=== PATIENT | male | born 1960 | race Caucasian/White ===

== ENCOUNTER 2018-12-26 18:06 | Emergency (ER) | payer BC, OTHER ==
[~2018-12-26] VITALS: Ht 182.9 cm; Wt 104.3 kg
--- OUTSIDE RECORDS SUMMARY | 2018-12-26 18:11 | XMS REPORT ---
Author Author Alicia Norman Organization [facility] Address [address] [place], [place] [id number] Care Team Providers Care Automotive General Manager Name Role Phone Alicia Norman PCP Alicia Norman PreferredProvider Allergies and Adverse Reactions Name Reaction Notes PENICILLINS Plan of Treatment Planned Activity Comments Planned Date Planned Time Plan/Goal T3 TOTAL 12/20/2018 12:00 AM Stress echo w physician interpretation 12/20/2018 12:00 AM Medications Active Name Start Date Estimated Completion Date SIG Comments promethazine oral lisinopril-hydrochlorothiazide 10-12.5 mg oral tablet take 1 tablet by oral route once daily ketorolac 10 mg oral tablet Take one tab PO q6 hrs PRN for pain Problem List Not available. Vital Signs Date Time BP-Sys(mm[Hg] BP-Denisse(mm[Hg]) HR(bpm) RR(rpm) Temp WT HT HC BMI BSA BMI Percentile O2 Sat(%) 12/20/2018 11:21:00 AM 128 mmHg 88 mmHg 67 bpm 18 rpm 98.6 F 236 lbs 72 in 32.007 kg/m 2.332 m 99 % Social History Name Description Comments Tobacco Current every day smoker denies alcohol use Caffeine Current every day Active but no formal exercise History of Procedures Date Ordered Description Order Status 12/20/2018 12:00 AM COMPLETE CBC W/AUTO DIFF WBC Returned 12/20/2018 12:00 AM COMPREHEN METABOLIC PANEL Returned 12/20/2018 12:00 AM LIPID PANEL Returned 12/20/2018 12:00 AM ASSAY THYROID STIM HORMONE Returned 12/20/2018 12:00 AM ASSAY OF FREE THYROXINE Returned 12/20/2018 12:00 AM ELECTROCARDIOGRAM TRACING Reviewed 12/20/2018 12:00 AM CHEST X-RAY 2VW FRONTAL&LATL Returned Results Summary Date and Description Results 12/20/2018 8:56 PM Falls in last 6 months? No Unsteady or worry about falling? No Fall Risk Assessment Not At Risk During the past month, have you been feeling depressed? No During the past month, have you lost interest in usual activity? No History Of Immunizations Not available. History of Past Illness Name Date of Onset Comments arthritis Migraine Other fatigue Dec 20 2018 11:27AM Hypertension Dec 20 2018 11:27AM Shortness Of Breath Dec 20 2018 11:27AM Chest pain Dec 20 2018 11:27AM Acute non-recurrent pansinusitis Dec 20 2018 11:27AM Headache Dec 20 2018 11:27AM Payers Insurance Name Company Name Plan Name Plan Number Policy Number Policy Group Number Start Date BCBS [facility] [id number] [id number] N/A History of Encounters Visit Date Visit Type Provider 12/20/2018 Office visit Alicia Norman SUPERINTENDENT RENTING MANAGING 05/04/2017 Surgery Rush Foss MD
--- OUTSIDE RECORDS SUMMARY | 2018-12-26 18:11 | XMS REPORT | CCD ---
Author Author RENE IBANEZ Organization Unknown Address [address] [facility] [address] [place] [address] Care Team Providers Care Solar Electric Practitioner Name Role Phone DEENA ORDOÑEZ, CYN Traore Allergies Unknown or Not Available. Active Medications Unknown or Not Available. Problems Unknown or Not Available. Procedures Procedure Code Procedure Type Date Esophagogastroduodenoscopy, flexible, transoral; [place] [address] CPT 05/04/2017 PATHOLOGY ORDER [id number] SNOMED CT 05/04/2017 Results Unknown or Not Available. Function Status Unknown or Not Available. History of Immunizations Unknown or Not Available. Plan of Treatment Unknown or Not Available. Social History Smoking Status Code Start Date End Date Never smoker [id number] Vital Signs Unknown or Not Available. Function Status Unknown or Not Available. Goals Unknown or Not Available. ASSESSMENTS Unknown or Not Available. Health Concerns Section Unknown or Not Available.
--- OUTSIDE RECORDS SUMMARY | 2018-12-26 18:11 | XMS REPORT ---
Author Author Alicia Norman Organization [facility] Address [address] [place], [place] [id number] Care Team Providers Care Cold Water Machine Operator Name Role Phone Alicia Norman PCP Alicia Norman PreferredProvider Allergies and Adverse Reactions Name Reaction Notes PENICILLINS Plan of Treatment Planned Activity Comments Planned Date Planned Time Plan/Goal Stress echo w physician interpretation 12/20/2018 12:00 [...] 12:00 AM COMPLETE CBC W/AUTO DIFF WBC Reviewed 12/20/2018 12:00 AM COMPREHEN METABOLIC PANEL Reviewed 12/20/2018 12:00 AM LIPID PANEL Reviewed 12/20/2018 12:00 AM ASSAY THYROID STIM HORMONE Reviewed 12/20/2018 12:00 AM ASSAY OF FREE THYROXINE Reviewed 12/20/2018 12:00 AM ASSAY TRIIODOTHYRONINE (T3) Returned 12/20/2018 12:00 AM ELECTROCARDIOGRAM TRACING Reviewed 12/20/2018 12:00 AM CHEST X-RAY 2VW FRONTAL&LATL Reviewed Results Summary Date and Description Results 12/20/2018 12:45 PM TSH 1.31 FREE T4 1.11 GLUCOSE 95 SODIUM 140 POTASSIUM 4.0 CHLORIDE 104 CO2 27 BUN 15 CREATININE 1.0 SGOT/AST 16 SGPT/ALT 20 ALK PHOS 83 TOTAL PROTEIN 7.5 ALBUMIN 4.7 TOTAL BILI 1.7 CALCIUM 10.1 AGE 58 GFR NonAA 77 GFR AA 93 eGFR 77 eGFR AA* >60 TRIGLYCERIDES 109 CHOLESTEROL 235 HDL 41 TOT CHOL /HDL 5.7 LDL (CALC) 172 WBC 9.8 RBC 4.90 HGB 15.3 HCT 46.7 MCV 95 MCH 31.2 MCHC 32.8 RDW SD 43 RDW CV 12.2 MPV 10.2 PLT 248 NRBC# 0.00 NRBC% 0.0 %NEUT 74.7 % LYMP 18.1 %MONO 5.5 %EOS 0.7 %BASO 0.7 #NEUT 7.35 #LYMP 1.78 #MONO 0.54 #EOS 0.07 #BASO 0.07 MANUAL DIFF NOT IND 12/20/2018 8:56 PM Falls in last 6 [...] Number Policy Group Number Start Date BCBS [facility] [id number] N/A BCBS [facility] [id number] N/A History of Encounters Visit Date Visit Type Provider 12/20/2018 Office visit Alicia Norman SUPERVISOR FILTRATION 05/04/2017 Surgery Rush Foss MD
--- OUTSIDE RECORDS SUMMARY | 2018-12-26 18:11 | XMS REPORT ---
Author Author Alicia Norman Organization [facility] Address [address] [place], [place] [id number] Care Team Providers Care Street Light Mechanic Name Role Phone Alicia Norman PCP Alicia [...] OF FREE THYROXINE Reviewed 12/20/2018 12:00 AM ELECTROCARDIOGRAM TRACING Reviewed 12/20/2018 [...] Number Policy Group Number [facility] Date [facility] [id number] N/A [facility] [id number] N/A History of Encounters Visit Date Visit Type Provider 12/20/2018 Office visit Alicia Norman PLATE SENSITIZER 05/04/2017 Surgery Rush Foss MD
--- OUTSIDE RECORDS SUMMARY | 2018-12-26 18:11 | XMS REPORT | Continuity of Care Document ---
Author Author [facility] Organization [facility] Address Unknown Phone Unavailable Allergies There is no data. Medications There is no data. Problems There is no data. Procedures There is no data. Results There is no data. Encounters ACCT No. Visit Date/Time Discharge Status Pt. Type Provider Facility Loc./Unit Complaint [id number] 12/20/2018 11:14:50 12/20/2018 23:59:59 [facility] Outpatient Elfego Norman [id number] 05/11/2017 11:43:58 05/11/2017 23:59:59 [facility] Outpatient Rush Foss
[2018-12-26] MEDS ORDERED: ASPIRIN 81 MG CHEW (CHILDREN'S ASA) ONE (18:18)
[2018-12-26] MEDS ORDERED: LISI-556 PO (18:21)
[2018-12-26 18:37] LABS: BASOPHILS # (AUTO) 0.1 10^3/uL (0.0-0.1); BASOPHILS % (AUTO) 1 % (0-10); EOSINOPHILS # (AUTO) 0.2 10^3/uL (0.0-0.3); EOSINOPHILS % (AUTO) 2 % (0-10); HEMATOCRIT 42 % (40-54); HEMOGLOBIN 14.6 G/DL (13.3-17.7); LYMPHOCYTES # (AUTO) 2.6 X 10^3 (1.0-4.0); LYMPHOCYTES % (AUTO) 31 % (12-44); MEAN CORPUSCULAR HEMOGLOBIN 32 PG (25-34); MEAN CORPUSCULAR HGB CONC 35 G/DL (32-36); MEAN CORPUSCULAR VOLUME 92 FL (80-99); MEAN PLATELET VOLUME 10.4 FL (7.4-10.4); MONOCYTES # (AUTO) 0.8 X 10^3 (0.0-1.0); MONOCYTES % (AUTO) 10 % (0-12); NEUTROPHILS # (AUTO) 4.8 X 10^3 (1.8-7.8); NEUTROPHILS % (AUTO) 57 % (42-75); PLATELET COUNT 247 10^3/uL (130-400); RED CELL DISTRIBUTION WIDTH 12.5 % (10.0-14.5); WHITE BLOOD COUNT 8.5 10^3/uL (4.3-11.0)
--- NOTE | 2018-12-26 18:39 | ED Chest Pain ---
General Chief Complaint: Chest Pain Stated Complaint: CP Nursing Triage Note: PT PRESENTS TO ED WITH COMPLAINTS OF MEDIAL CP THAT RADIATES TO BOTH NIPPLES STARTING AT 1530 TODAY. PT DENIES SOA. PT REPORTS THE PAST 2 WEEKS HE HAS HAD SIMILAR EPISODES WITH HYPERTENSION, DIZZINESS, MIJARES, SOA, AND CP. PT REPORTS HE IS SCHEDULED TO SEE DR CUNNINGHAM ON 12/28/18 Nursing Sepsis Screen: No Definite Risk Source: patient, spouse Exam Limitations: no limitations History of Present Illness Date Seen by Provider: Dec 26, 2018 Time Seen by Provider: 18:15 Initial Comments Patient presents to ER by private conveyance with chief complaint of chest pain starting substernal and radiating out towards the left and right breast. Started 1530 today. He's had the same intermittent pressure and pain for the past week or 2. With his doctor and scared his blood pressure was high intermittently out words at 180/110. He was started on lisinopril. This is helped bring his blood pressure down. His rn training Dr. Cunningham. He lives in [place], [place]. 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 He has no personal coronary artery history or significant family history. No history of diabetes, thyroidism. Just blood pressure and cluster all. He does chew can of tobacco every 2-3 days. Denies any recreational drug use and only occasional beer every few months. He says he's had swelling in his feet intermittently worse towards the end of the day for years that is not any worse than usual. He describes the pain as an 8 out of 10 on burning, aching pressure. No significant history of acid reflux. Allergies and Home Medications Allergies Coded Allergies: Penicillins (Verified Allergy, Unknown, 12/26/18) Home Medications Lisinopril 5 Mg Tablet, 5 MG PO DAILY, (Reported) Patient Home Medication List Home Medication List Reviewed: Yes Review of Systems Review of Systems Constitutional: No chills, No fever EENTM: No Blurred Vision, No Double Vision Respiratory: Denies Cough, Denies Shortness of Air Cardiovascular: See HPI, Chest Pain, Edema; Denies Irregular Heart Rate, Denies Lightheadedness, Denies Palpitations Gastrointestinal: Denies Abdomen Distended, Denies Abdominal Pain, Denies Constipated, Denies Diarrhea; Nausea; Denies Vomiting Genitourinary: Denies Burning, Denies Discharge Musculoskeletal: No back pain, No joint pain Skin: No pruritus, No rash Psychiatric/Neurological: Denies Headache, Denies Numbness Past Qtcecti-Dxgpie-Allgzb Hx Patient Social History Alcohol Use: Rarely Uses Recreational Drug Use: No Smoking Status: Never a Smoker Type Used: Smokeless Tobacco Recent Foreign Travel: No Contact w/Someone Who Travel: No Recent Infectious Disease Expo: No Recent Hopitalizations: No Physical Abuse: No Sexual Abuse: No Mistreated: No Fear: No Seasonal Allergies Seasonal Allergies: No Past Medical History Surgeries: No Respiratory: No Cardiac: Yes Hypertension Neurological: No Genitourinary: No Gastrointestinal: No Musculoskeletal: No Endocrine: No HEENT: No Cancer: No Psychosocial: No Integumentary: No Blood Disorders: No Physical Exam Vital Signs Vital Signs - First Documented 12/26/18 18:11 Temp 97.3 Pulse 70 Resp 20 B/P (MAP) 144/78 (100) Pulse Ox 100 O2 Delivery Nasal Cannula O2 Flow Rate 2.0 Capillary Refill : Less Than 3 Seconds Height, Weight, BMI Height: 6'" Weight: 230lbs. oz. 104.026664rc; BMI Method:Stated General Appearance: No Apparent Distress, WD/WN HEENT: PERRL/EOMI, Moist Mucous Membranes Respiratory: Chest Non Tender, Lungs Clear, Normal Breath Sounds, No Accessory Muscle Use, No Respiratory Distress Cardiovascular: Regular Rate, Rhythm, No Edema, Normal Peripheral Pulses Gastrointestinal: Normal Bowel Sounds, Non Tender, Soft Extremity: Normal Capillary Refill, Normal Inspection, Normal Range of Motion, Non Tender, No Calf Tenderness, No Pedal Edema Neurologic/Psychiatric: Alert, Oriented x3, No Motor/Sensory Deficits, Normal Mood/Affect Skin: Normal Color, Warm/Dry Progress/Results/Core Measures Results/Orders Lab Results Laboratory Tests Test 12/26/18 18:16 12/26/18 20:40 Range/Units White Blood Count 8.5 4.3-11.0 10^3/uL Red Blood Count 4.55 4.35-5.85 10^6/uL Hemoglobin 14.6 13.3-17.7 G/DL Hematocrit 42 40-54 % Mean Corpuscular Volume 92 80-99 FL Mean Corpuscular Hemoglobin 32 25-34 PG Mean Corpuscular Hemoglobin Concent 35 32-36 G/DL Red Cell Distribution Width 12.5 10.0-14.5 % Platelet Count 247 130-400 10^3/uL Mean Platelet Volume 10.4 7.4-10.4 FL Neutrophils (%) (Auto) 57 42-75 % Lymphocytes (%) (Auto) 31 12-44 % Monocytes (%) (Auto) 10 0-12 % Eosinophils (%) (Auto) 2 0-10 % Basophils (%) (Auto) 1 0-10 % Neutrophils # (Auto) 4.8 1.8-7.8 X 10^3 Lymphocytes # (Auto) 2.6 1.0-4.0 X 10^3 Monocytes # (Auto) 0.8 0.0-1.0 X 10^3 Eosinophils # (Auto) 0.2 0.0-0.3 10^3/uL Basophils # (Auto) 0.1 0.0-0.1 10^3/uL Prothrombin Time 12.4 12.2-14.7 SEC INR Comment 0.9 0.8-1.4 Activated Partial Thromboplast Time 26 24-35 SEC Sodium Level 141 135-145 MMOL/L Potassium Level 3.7 3.6-5.0 MMOL/L Chloride Level 104 98-107 MMOL/L Carbon Dioxide Level 25 21-32 MMOL/L Anion Gap 12 5-14 MMOL/L Blood Urea Nitrogen 18 7-18 MG/DL Creatinine 1.03 0.60-1.30 MG/DL Estimat Glomerular Filtration Rate > 60 BUN/Creatinine Ratio 17 Glucose Level 90 70-105 MG/DL Calcium Level 9.8 8.5-10.1 MG/DL Corrected Calcium 8.5-10.1 MG/DL Magnesium Level 2.5 H 1.8-2.4 MG/DL Total Bilirubin 1.0 0.1-1.0 MG/DL Aspartate Amino Transf (AST/SGOT) 17 5-34 U/L Alanine Aminotransferase (ALT/SGPT) 19 0-55 U/L Alkaline Phosphatase 76 40-136 U/L Myoglobin 23.8 10.0-92.0 NG/ML Troponin I < 0.028 < 0.028 <0.028 NG/ML B-Type Natriuretic Peptide 15.8 <100.0 PG/ML Total Protein 7.2 6.4-8.2 GM/DL Albumin 4.6 H 3.2-4.5 GM/DL Lipase 24 8-78 U/L My Orders Orders - LETTY BOWERS Aspirin Chewable Tablet (Baby Aspirin Ch (12/26/18 18:18) Cbc With Automated Diff (12/26/18 18:31) Magnesium (12/26/18 18:31) Chest 1 View, Ap/Pa Only (12/26/18 18:31) Ekg Tracing (12/26/18 18:31) Cardiac Profile 1 (12/26/18 18:) Comprehensive Metabolic Panel (12/26/18:) Myoglobin Serum (12/26/18:) Protime With Inr (12/26/18:) Partial Thromboplastin Time (12/26/18 18:) O2 (12/26/18 18:) Monitor-Rhythm Ecg Trace Only (12/26/18:) Lipid Panel (12/27/18 06:00) Aspirin Chewable Tablet (Baby Aspirin Ch (12/26/18 18:45) Saline Lock/Iv-Start (12/26/18 18:31) Lipase (12/26/18 18:31) BNP (12/26/18 18:31) Troponin I (12/26/18 20:06) Ekg Tracing (12/26/18 20:06) Medications Given in ED Current Medications Medications Dose Ordered Sig/Ismael Route Start Time Stop Time Status Last Admin Dose Admin Aspirin 81 mg STK-MED ONCE .ROUTE 12/26/18 18:18 12/26/18 18:21 DC 12/26/18 18:22 324 MG Vital Signs/I&O 12/26/18 12/26/18 18:11 18:11 Temp 97.3 Pulse 70 Resp 20 B/P (MAP) 144/78 (100) Pulse Ox 100 O2 Delivery Nasal Cannula Nasal Cannula O2 Flow Rate 2.0 Blood Pressure Mean: 100 Progress Progress Note #1: Time: 18:38 Progress Note Hypertension hypercholesterolemia and seems to be some component of anxiety however not sure if that's related to underlying medical condition and is less likely the root cause of his symptoms. We'll give him aspirin but at this time his pain is resolved and nothing so no nitroglycerin. Initial EKG does not reveal anything significant. He has a few PACs so was thing about him having some paroxysmal dysrhythmia versus coronary disease. She is less likely he would have a AAA since his pain does not radiate to the back and is not persistent. His well score is very low considering he has no risk factors for PE. He does report occasional cough. He's had a nonproductive cough couple times and I interviewed him so is possible this is pain related to the chest wall. ED ACS 14 points. Low risk by the EDACS Score. If the patient also has: (1) EKG without new ischemic changes and (2) negative initial and 2-hour troponins, then this patient is safe for discharge to early outpatient follow-up investigation (or proceed to earlier inpatient testing). If EKG with ischemic changes or positive troponin, they are not low risk and require normal risk stratification. Progress Note #2: Time: 20:18 Progress Note The patient is still chest pain-free.he did have a momentary incidence of pain in his right elbow that was reproducible by direct palpation. There is no evidence of injury, swelling, ecchymoses, limited range of motion. The pain went away without intervention within a few minutes. This sounds musculoskeletal and unrelated to his other pain. It may have evidence for chest wall costochondritis however. Delta EKG and troponin. Initial ECG Impression Date: Dec 26, 2018 Initial ECG Impression Time: 18:11 Initial ECG Rate: 66 Initial ECG Rhythm: Normal Sinus Initial ECG Intervals: Normal Initial ECG Impression: Normal Initial ECG Comparisson: No Previous ECG Available Comment No ST elevation or depression. A few PACs. EKG : EKG Time: 20:42 Rate: 72 Rhythm: Normal Sinus Intervals: Normal ECG Comparisson: Unchanged ECG Impression: Normal Comment No ST elevation or depression. Diagnostic Imaging Diagonstic Imaging: Xray Plain Films/CT/US/NM/MRI: chest (1v) Comments NAME: [facility] REC#: [id number] PHYSICIAN: LETTY BOWERS MD CC: BEL UGALDE MD; LETTY BOWERS Page 1 of 1 RADIOLOG[facility] REPORT [facility] [place] [place] CC: BEL UGALDE MD; LETTY BOWERS Page 1 of 1 RADIOLOGY REPORT NAME: [facility] REC#: [id number] PT STATUS: REG ER : 1960 PHYSICIAN: LETTY BOWERS MD ADMIT DATE: 12/26/18/ER Signed Date of Exam: 12/26/18 CHEST 1 VIEW, AP/PA ONLY INDICATION: Chest pain and hypertension. FINDINGS: Heart size is normal. Mediastinum is unremarkable. Lungs are clear. There is no pleural effusion, pneumothorax, or pneumonia. IMPRESSION: No acute cardiopulmonary abnormality. Dictated by: Dictated on workstation # [id number] Dict: 12/26/181909 Trans: 12/26/181925 Interpreted by: BEL UGALDE MD Electronically signed by: BEL UGALDE MD 12/26/181925 Reviewed: Reviewed by Me Departure Impression Primary Impression: Chest pain Qualified Codes: R07.9 - Chest pain, unspecified Disposition: 01 HOME, SELF-CARE Condition: Stable Departure-Patient Inst. Decision time for Depature: 21:30 Referrals: VIRGINIA CUNNINGHAM MD NO,LOCAL PHYSICIAN (PCP) Primary Care Physician Patient Instructions: Chest Pain (DC) Add. Discharge Instructions: Keep your follow-up appointment this week with the rn training Dr. Cunningham. Return to the ER if you have significant chest pain that does not go away after a few minutes. Take an aspirin 324 mg and she would swallow it if you have chest pain. Afterwards follow-up with primary care for further evaluation if they do not find any cardiac source of your chest pressure and pain. All discharge instructions reviewed with patient and/or family. Voiced understanding. LETTY BOWERS Dec 26, 2018 18:39
[2018-12-26 18:42] LABS: INR 0.9 (0.8-1.4); PROTHROMBIN TIME PATIENT 12.4 SEC (12.2-14.7)
[2018-12-26] MEDS ORDERED: ASPIRIN 81 MG CHEW (CHILDREN'S ASA) PO ONE (18:45)
[2018-12-26 18:58] LABS: ALANINE AMINOTRANSFERASE 19 U/L (0-55); ALBUMIN 4.6 GM/DL (3.2-4.5); ALKALINE PHOSPHATASE 76 U/L (40-136); BUN/CREATININE RATIO 17; CALCIUM 9.8 MG/DL (8.5-10.1); CARBON DIOXIDE 25 MMOL/L (21-32); CHLORIDE 104 MMOL/L (98-107); CREATININE SERUM 1.03 MG/DL (0.60-1.30); GFR ESTIMATED > 60; GLUCOSE 90 MG/DL (70-105); LIPASE 24 U/L (8-78); MAGNESIUM 2.5 MG/DL (1.8-2.4); POTASSIUM 3.7 MMOL/L (3.6-5.0); SODIUM 141 MMOL/L (135-145); TOTAL PROTEIN 7.2 GM/DL (6.4-8.2)
[2018-12-26 19:05] LABS: MYOGLOBIN SERUM 23.8 NG/ML (10.0-92.0)
--- NOTE | 2018-12-26 19:12 | Diagnostic Imaging Report ---
INDICATION: Chest pain and hypertension. FINDINGS: Heart size is normal. Mediastinum is unremarkable. Lungs are clear. There is no pleural effusion, pneumothorax, or pneumonia. IMPRESSION: No acute cardiopulmonary abnormality. Dictated by: Dictated on workstation # [id number]
[2018-12-26 21:45] VITALS: BP 135/72
== END 2018-12-26 21:45 | disposition home or self-care (01) ==
LOC: ER 18:07
DX: R07.2 Precordial pain (principal); I10 Essential (primary) hypertension; Z88.0 Allergy status to penicillin
CPT/HCPCS: 36415; 71045; 80053; 83690; 83735; 83874; 83880; 84484; 85025; 85610; 85730; 93005; 93041

== ENCOUNTER → 2018-12-29 | Outpatient (CLI) | payer BC ==
[~2018-12-29] VITALS: Ht 182.9 cm; Wt 107.5 kg
[~2018-12-29] MED LIST: CATHETER FLUSH 10 ML SYR IV PRN; LISI-556 PO
--- NOTE | 2018-12-29 16:53 | STRESS TEST ---
DATE OF SERVICE: 12/29/2018 EXERCISE MYOVIEW STRESS TEST REPORT Baseline heart rate is 66. Baseline blood pressure 121/80. Baseline EKG is sinus rhythm with no ischemic changes. In summary, the patient was injected with 10.36 mCi of technetium-99 Myoview and the resting images were obtained. Then, the patient started exercising with a baseline heart rate, blood pressure and EKG mentioned above. The patient was able to exercise for 6 minutes on standard Marvin protocol. With peak exercise level, the patient was given 31.9 mCi of technetium-99 Myoview. During recovery, heart rate returned to baseline. EKG did not show any ischemic changes. The resting and stress images were reviewed and compared in the short axis, horizontal long axis, and vertical long axis views. Review of the images showed diaphragmatic attenuation with decreased uptake involving the inferoapical segment with subtle reversibility, no significant ischemia was noted. SSS is 3, SDS 3, TID value 1.0. On the gated images, the left ventricle appeared to be in normal size with normal contractility. Calculated ejection fraction 61%. CONCLUSION: 1. Fair exercise tolerance, a total of 6 minutes on standard Marvin protocol, total of 7.3 METS achieving 93% of maximum expected heart rate. 2. Minimal nondiagnostic EKG changes with exercise returned to baseline during recovery. 3. Diaphragmatic attenuation with typical male pattern with no significant ischemia or infarction on SPECT images. 4. Normal left ventricular size with normal contractility. Calculated ejection fraction 61%. Job ID: [id number] DocumentID: [id number] Dictated Date: 12/29/2018 15:26:26 Graduate Civil Engineer Date: 12/29/2018 16:53:24 Dictated By: VIRGINIA CORTES MD
== END ==
LOC: CARD 10:29
PROVIDERS: ATTEND Internal Medicine Cardiovascular Disease
DX: R07.89 Other chest pain (principal); R06.02 Shortness of breath; I10 Essential (primary) hypertension; E66.9 Obesity, unspecified; Z68.32 Body mass index [BMI] 32.0-32.9, adult; Z72.0 Tobacco use
CPT/HCPCS: 78452; 93017; 93306

== ENCOUNTER → 2019-01-18 | Outpatient (CLI) | payer BC ==
[~2019-01-18] MED LIST changes: -CATHETER FLUSH 10 ML SYR IV PRN
[2019-01-18 12:15] LABS: BASOPHILS % (AUTO) 1 % (0-10); EOSINOPHILS # (AUTO) 0.2 10^3/uL (0.0-0.3); EOSINOPHILS % (AUTO) 2 % (0-10); HEMATOCRIT 42 % (40-54); HEMOGLOBIN 14.5 G/DL (13.3-17.7); LYMPHOCYTES # (AUTO) 2.2 X 10^3 (1.0-4.0); LYMPHOCYTES % (AUTO) 25 % (12-44); MEAN CORPUSCULAR HEMOGLOBIN 32 PG (25-34); MEAN CORPUSCULAR HGB CONC 34 G/DL (32-36); MEAN CORPUSCULAR VOLUME 93 FL (80-99); MEAN PLATELET VOLUME 10.2 FL (7.4-10.4); MONOCYTES # (AUTO) 0.6 X 10^3 (0.0-1.0); MONOCYTES % (AUTO) 7 % (0-12); NEUTROPHILS # (AUTO) 5.6 X 10^3 (1.8-7.8); NEUTROPHILS % (AUTO) 66 % (42-75); PLATELET COUNT 228 10^3/uL (130-400); RED CELL DISTRIBUTION WIDTH 13.1 % (10.0-14.5); WHITE BLOOD COUNT 8.5 10^3/uL (4.3-11.0)
[2019-01-18 12:29] LABS: BUN/CREATININE RATIO 15; CREATININE SERUM 0.94 MG/DL (0.60-1.30); GFR ESTIMATED > 60
--- NOTE | 2019-01-18 14:20 | Diagnostic Imaging Report ---
PROCEDURE: CT angiography of the chest with contrast. TECHNIQUE: Multiple contiguous axial images were obtained through the chest after uneventful bolus administration of intravenous contrast. 2D reconstructed CTA MIP acquisitions were also performed. Auto Exposure Controls were utilized during the CT exam to meet ALARA standards for radiation dose reduction. INDICATION: Pneumonia There are no prior CTA chest examinations available for comparison. The plain film examination of the chest performed on 12/26/2018 failed to show any sign of an acute cardiopulmonary abnormality. The heart size is within normal limits. There are no coronary artery calcifications evident. The aorta is not abnormally dilated and there is no sign of a dissection. There is no defect within the pulmonary arteries to suggest a pulmonary embolus. There are mild emphysematous changes throughout both lungs. There is no evidence for failure, pneumonia or for a pleural effusion to indicate an acute abnormality. There is no parenchymal lung mass visualized. There is no mediastinal or hilar adenopathy. Thyroid gland is generally unremarkable. The sections through the upper abdomen fail to show any sign of an acute abnormality. The bone windows show no sign of a fracture or of a destructive lesion. IMPRESSION: 1. There is no evidence for an acute cardiopulmonary abnormality. In particular there is no sign of a pulmonary embolus or of a dissection. 2. There are mild emphysematous changes involving the lungs. There is no evidence for failure, pneumonia or a pleural effusion. Dictated by: Dictated on workstation # [id number]
== END ==
LOC: RAD 11:43
PROVIDERS: ATTEND Nurse Practitioner Family
DX: J43.9 Emphysema, unspecified (principal); J30.9 Allergic rhinitis, unspecified; G47.10 Hypersomnia, unspecified; Z72.0 Tobacco use
CPT/HCPCS: 36415; 71275; 82565; 84520; 85025

== ENCOUNTER 2019-02-08 09:30 | Outpatient (CLI) | payer BC ==
[~2019-02-08] VITALS: Ht 182.9 cm; Wt 108.9 kg
[2019-02-08] MEDS ORDERED: LISI1TAB6 PO (09:46)
[2019-02-08] MEDS ORDERED: DOXY100T19 PO (09:46)
[2019-02-09] MEDS ORDERED: PANT40TA2 PO (10:01)
== END 2019-02-08 10:47 | disposition home or self-care (01) ==
LOC: PREOP 09:30
PROVIDERS: ATTEND Surgery
DX: Z01.818 Encounter for other preprocedural examination (principal)

== ENCOUNTER 2019-03-11 14:04 | Outpatient (CLI) | payer BC ==
[~2019-03-11 14:04] MED LIST changes: -RT-ALBUTEROL SULF 2.5 MG/3 ML PRE-MIX VIAL INH ONE
== END 2019-03-11 15:45 | disposition home or self-care (01) ==
LOC: SLEEP 14:04
PROVIDERS: ATTEND Nurse Practitioner Family
DX: G47.10 Hypersomnia, unspecified (principal); R06.00 Dyspnea, unspecified; J30.9 Allergic rhinitis, unspecified; R06.89 Other abnormalities of breathing; Z72.0 Tobacco use

== ENCOUNTER → 2019-03-11 | Outpatient (CLI) | payer BC ==
[~2019-03-11] MED LIST changes: +DOXY100T19 PO; +LISI1TAB6 PO; +PANT40TA2 PO; +RT-ALBUTEROL SULF 2.5 MG/3 ML PRE-MIX VIAL INH ONE
== END ==
LOC: RT 14:04
PROVIDERS: ATTEND Nurse Practitioner Family
DX: R06.00 Dyspnea, unspecified (principal); J30.9 Allergic rhinitis, unspecified; G47.10 Hypersomnia, unspecified; R06.89 Other abnormalities of breathing; Z72.0 Tobacco use
CPT/HCPCS: 94060; 94726; 94729

== ENCOUNTER 2019-09-05 08:51 | Outpatient (RCR) | payer BC ==
[~2019-09-05 08:51] MED LIST changes: -DOXY100T19 PO; +DOXY100T31 PO; +LISI1TAB29 PO; -LISI1TAB6 PO
[2019-09-14] MEDS ORDERED: ASPI-983 PO (07:25)
[2019-09-14] MEDS ORDERED: MTP25TSR PO (07:25)
[2019-09-14] MEDS ORDERED: IBUP-1780 PO (07:25)
[2019-09-14] MEDS ORDERED: PANT40TA2 PO (07:25)
[2019-09-14] MEDS ORDERED: ATOR10TA PO (08:31)
[2019-09-14] MEDS ORDERED: NITR0.4T42 SL (10:52)
== END 2019-12-04 | disposition home or self-care (01) ==
LOC: CARD 08:51
PROVIDERS: ATTEND Physician Assistant
DX: I10 Essential (primary) hypertension (principal); R07.89 Other chest pain; R06.02 Shortness of breath; E66.9 Obesity, unspecified; G47.33 Obstructive sleep apnea (adult) (pediatric)
CPT/HCPCS: 93225; 93226

== ENCOUNTER 2019-09-14 06:37 | Day surgery (SDC) | payer BC ==
[2019-09-14] VITALS (8 sets, daily range): BP systolic 109–143; BP diastolic 69–94
[~2019-09-14] VITALS: Ht 182 cm; Wt 111.0 kg
[~2019-09-14 06:37] MED LIST changes: +DOXY100T19 PO; -DOXY100T31 PO; -LISI1TAB29 PO; +LISI1TAB6 PO
[2019-09-14] MEDS ORDERED: HEParin (CATH LAB) 2,000 ML IV ONE (06:41)
[2019-09-14] MEDS ORDERED: LIDOCAINE 1% INJ 20 ML 20 ML VIAL ONE (06:41)
[2019-09-14] MEDS ORDERED: NS IV 1000 ML 1,000 ML IV SCH ×2 (06:45→08:28)
[2019-09-14 07:10] LABS: HEMOGLOBIN 14.4 G/DL (13.3-17.7); MEAN PLATELET VOLUME 10.4 FL (7.4-10.4); RED CELL DISTRIBUTION WIDTH 12.9 % (10.0-14.5); WHITE BLOOD COUNT 6.1 10^3/uL (4.3-11.0)
[2019-09-14 07:23] LABS: INR 0.9 (0.8-1.4); PROTHROMBIN TIME PATIENT 12.9 SEC (12.2-14.7)
[2019-09-14] MEDS ORDERED: PANT40TA2 PO (07:25)
[2019-09-14] MEDS ORDERED: IBUP-1780 PO (07:25)
[2019-09-14] MEDS ORDERED: METO-387 PO (07:25)
[2019-09-14] MEDS ORDERED: ASPI-983 PO (07:25)
[2019-09-14 07:27] LABS: ALANINE AMINOTRANSFERASE 18 U/L (0-55); ALBUMIN 4.4 GM/DL (3.2-4.5); ALKALINE PHOSPHATASE 69 U/L (40-136); BILIRUBIN,TOTAL 1.4 MG/DL (0.1-1.0); BUN/CREATININE RATIO 16; CALCIUM 9.5 MG/DL (8.5-10.1); CARBON DIOXIDE 25 MMOL/L (21-32); CHLORIDE 106 MMOL/L (98-107); CHOLESTEROL 228 MG/DL (< 200); CREATININE SERUM 1.06 MG/DL (0.60-1.30); GFR ESTIMATED > 60; GLUCOSE 80 MG/DL (70-105); HDL CHOLESTEROL 48 MG/DL (40-60); POTASSIUM 3.9 MMOL/L (3.6-5.0); SODIUM 142 MMOL/L (135-145); TOTAL PROTEIN 6.8 GM/DL (6.4-8.2); TRIGLYCERIDES 87 MG/DL (<150); VLDL CHOLESTEROL 17 MG/DL (5-40)
[2019-09-14] MEDS ORDERED: MIDAZOLAM 5 MG/5 ML (VERSED) VIAL ONE (07:34)
[2019-09-14] MEDS ORDERED: fentaNYL INJECTION 100 MCG/2 ML AMP ONE (07:34)
[2019-09-14] MEDS ORDERED: HEParin 1000 UNIT/ML (10ML VIAL) FOR BOLUS ONE (07:34)
[2019-09-14] MEDS ORDERED: NITRO DRIP 25000 MCG/D5W 250 ML IV ONE (07:34)
[2019-09-14] MEDS ORDERED: VERAPAMIL 5 MG/2 ML (CALAN) VIAL IV ONE (07:34)
--- NOTE | 2019-09-14 08:04 | Cardiac Procedure Note-CS/ASA ---
Pre-Procedure Note Pre-Op Procedure Note H&P Reviewed The H&P was reviewed, patient examined and no changes noted. Date H&P Reviewed: Sep 14, 2019 Time H&P Reviewed: 08:03 Conscious Sedation Pre-Proced Time 08:03 ASA Score 3 For ASA 3 and 4: Consider anesthesia and medical clearance. Also, for patients with a history of failed moderate sedation consider anesthesia. Airway Lungs Heart ASA score ASA 1: a normal healthy patient ASA 2: a patient with a mild systemic disease (mid diabetes, controlled hypertension, obesity x ASA 3: a patient with a severe systemic disease that limits activity (angina, COPD, prior Myocardial infarction) ASA 4: a patient with an incapacitating disease that is a constant threat to life (CHF, renal failure) ASA 5: a moribund patient not expected to survive 24 hrs. (ruptured aneurysm) ASA 6: a declared brain- patient whose organs are being harvested. For emergent operations, add the letter E after the classification Mallampati Classification Grade 3 Sedation Plan Analgesia, Amnesia, Plan communicated to team members, Discussed options with patient/fam, Discussed risks with patient/fam The patient is an appropriate candidate to undergo the planned procedure, sedation, and anesthesia. The patient immediately re-assessed prior to indication. VIRGINIA CORTES MD Sep 14, 2019 08:04 POS
--- NOTE | 2019-09-14 08:15 | Diagnostic Imaging Report ---
INDICATION: Chest pain, dyspnea, hypertension. TECHNIQUE: Single view chest 7:42 AM. CORRELATION STUDY: 12/26/2018 FINDINGS: Heart size upper limits of normal. Vasculature within normal limits. The lungs are clear with no consolidating infiltrate. There is no significant effusion or pneumothorax. IMPRESSION: 1. Negative for acute abnormality of the chest. Dictated by: Dictated on workstation # [id number]
[2019-09-14] MEDS ORDERED: ATOR10TA PO (08:31)
--- NOTE | 2019-09-14 08:31 | Discharge Inst-Post CATH ---
Discharge Inst-CATH/EP Problems Reviewed?: Yes Post Cardiac Cath/EP D/C Inst Follow Up/Plan Appointment with Dr. CORTES's office in 2-4 weeks <b>CARDIAC CATH/EP PROCEDURE DISCHARGE INSTRUCTIONS</b> ACTIVITY * Go Home directly and rest. * Limit activity of the leg (or wrist if it was used) for 7 days including aerobics, swimming, jogging, bicycling, etc. * Restrict stair-climbing for 7 days if possible, if not, climb up with your non-cath leg, then bring together on the same step. * Avoid lifting, pushing, pulling or excessive movement of the affected extremity for 7 days. * Customary sexual activity may be resumed after 2 days-use caution not to use a position that strains or causes pain to the affected extremity. * No driving for 24 hours. * NO SMOKING. * Avoid straining for bowel movements for 7 days. * Gentle walking on level ground is allowed. * Returning to work will depend on the type of procedure and the results. Your doctor will discuss this with you. CALL YOUR DOCTOR FOR ANY OF THE FOLLOWING: *If bleeding from the puncture site occurs- Apply gentle pressure to site with clean cloth and call your doctor or EMS. * If a knot or lump forms under the skin, increases in size, or causes pain. * If bruising appears to be worsening or moving further down your leg instead of disappearing. * Temperature above 101 F. CARE OF YOUR GROIN INCISION; * Bruising or purple discoloration of the skin near the puncture site is common. * You may shower only, no bathtub bathing for 5 days. Be careful to avoid slipping as your leg may feel stiff. * If a closure device was used on your femoral artery, please see the attached guide regarding care of the device and your leg. * Leave dressing on FOR 24 hours. CARE OF YOUR WRIST INCISION; * Bruising or purple discoloration of the skin near the puncture site is common. * You may shower. * DO NOT submerge wrist. * Leave dressing on FOR 24 hours. VIRGINIA CORTES MD Sep 14, 2019 08:31 POS
--- NOTE | 2019-09-14 08:35 | Cardiac Cath Report ---
Cardiac Cath Report Physician (s)/Overnight Babysitter (s) Physician VIRGINIA CORTES MD Pre-Procedure Diagnosis Pre-Procedure Diagnosis: Chest pain Post-Procedure Note Procedure Start Date: Sep 14, 2019 Name of Procedure: Left heart catheterization Findings/Procedure Note PROCEDURE NOTE: 59 years old gentleman with recurrent chest pain, had abnormal stress test but continued to have increasing chest pain with exertion and stress relieved by rest, decided to proceed with cardiac catheterization possible PTCA. After explaining the procedure to the patient, all pros and cons were explained, all questions were answered. The patient signed the consent and then he was placed on the cardiac catheterization laboratory. Groin was prepped SL fashion local anesthesia was used. Sheath placed in the right radial artery, [place] catheter was used, JL 4 and Hyun catheter were used Taxus left ventricular cavity and the right and left coronary system At the end of the procedure the sheath was removed. vascular band was used FINDINGS: Hemodynamics LV 92/12, end-diastolic pressure of 12 Aorta 93/58 mean of 25 ANATOMY: Left Main is free of obstructive disease Left Anterior Descending is free of obstructive disease Left Circumflex is free of obstructive disease Right Coronory Artery has slow flow with no significant obstructive disease, probably small vessel disease LV Gram was done showing normal left ventricular size and systolic function estimated ejection fraction 60 percent CONCLUSION: 1. Slow flow in the right coronary artery probably due to small vessel disease 2. Otherwise no significant obstructive coronary artery disease 3. Normal left ventricular size and systolic function estimated ejection fraction 60 percent DISCUSSION AND RECOMMENDATION: continue on aspirin, add Lipitor and continue on beta blockers. Anesthesia Type: Conscious Sedation Estimated blood loss (mL): 10 ml Contrast Amount: 78 ml Total Radiation Dose: 728 mGy Post-Procedure Diagnosis Post-operative diagnosis: Chest pain Coronary artery disease Hypertension Hyperlipidemia VIRGINIA CORTES MD Sep 14, 2019 08:35 POS
--- NOTE | 2019-09-14 09:29 | NUR ---
SPOKE WITH THE PT (AND HIS ) AND CALLED [facility] TO COMPLETE THE MED REC. PT DID NOT BRING HIS BOTTLES OR HAVE A MED LIST, HOWEVER THE SAID SHE KNEW EVERYTHING HE TAKES SINCE HE ONLY TAKES A COUPLE. PT SAYS HE TAKES IBUPROFEN 800MG BID- HOWEVER THE [facility] HAS NEVER FILLED THIS. WHEN I WENT TO QUESTION THE PT IF HE JUST TAKES 4 IBUPROFEN 200MG OTC TO EQUAL THAT DOSE HE WAS ALREADY IN THE PROCEDURE ROOM, AND THEN HE ORDERS WERE ALREADY DISCHARGED. THE FOLLOWING ARE FILL DATES ACCORDING TO [facility]: 08-01-2019 PANTOPRAZOLE #30DS 09-01-2019 METOPROLOL #DS
[2019-09-14] MEDS ORDERED: NITR0.4T42 SL (10:52)
--- OUTSIDE RECORDS SUMMARY | 2019-10-09 18:53 | XMS REPORT | Continuity of Care Document ---
Author Organization Unknown Address Unknown Phone Unavailable Allergies Active Description Code Type Severity Reaction Onset Reported/Identified Relationship to Patient Clinical Status Yes Penicillins [id number] Drug Aller gy Unknown N/A 02/09/2019 Medications There is no data. Problems Date Dx Coded Attending Type Code Diagnosis Diagnosed By 12/26/2018 LETTY BOWERS MD Ot I10 ESSENTIAL (PRIMARY) HYPERTENSION 12/26/2018 LETTY BOWERS MD Ot R07. 2 PRECORDIAL PAIN 12/26/2018 LETTY BOWERS MD Ot Z88. 0 ALLERGY STATUS TO PENICILLIN 12/28/2018 LETTY BOWERS MD Ot I10 ESSENTIAL (PRIMARY) HYPERTENSION 12/28/2018 LETTY BOWERS MD Ot R07. 2 PRECORDIAL PAIN 12/28/2018 LETTY BOWERS MD Ot Z88. 0 ALLERGY STATUS TO PENICILLIN 01/04/2019 VIRGINIA CORTES MD Ot E66. 9 OBESITY, UNSPECIFIED 01/04/2019 VIRGINIA CORTES MD Ot I10 ESSENTIAL (PRIMARY) HYPERTENSION 01/04/2019 VIRGINIA CORTES MD Ot R06. 02 SHORTNESS OF BREATH 01/04/2019 VIRGINIA CORTES MD Ot R07. 89 OTHER CHEST PAIN 01/04/2019 VIRGINIA CORTES MD Ot Z68. 32 BODY MASS INDEX (BMI) 32.0-32.9, ADULT 01/04/2019 VIRGINIA CORTES MD Ot Z72. 0 TOBACCO USE 01/19/2019 EMILI ALVAREZ APRN Ot G47.10 HYPERSOMNIA, UNSPECIFIED 01/19/2019 EMILI ALVAREZ APRN Ot J30.9 ALLERGIC RHINITIS, UNSPECIFIED 01/19/2019 EMILI ALVAREZ CAN STERILIZER Ot J43.9 EMPHYSEMA, UNSPECIFIED 01/19/2019 EMILI ALVAREZ CAN STERILIZER Ot Z72.0 TOBACCO USE 02/02/2019 EMILI ALVAREZ CAN STERILIZER Ot G47.10 HYPERSOMNIA, UNSPECIFIED 02/02/2019 EMILI ALVAREZ APRN Ot J30.9 ALLERGIC RHINITIS, UNSPECIFIED 02/02/2019 EMILI ALVAREZ APRN Ot J43.9 EMPHYSEMA, UNSPECIFIED 02/02/2019 EMILI ALVAREZ APRN Ot Z72.0 TOBACCO USE 02/04/2019 ZACHARY MCKINNEY MD, Ot Z01.81 8 ENCOUNTER FOR OTHER PREPROCEDURAL EXAMIN 02/08/2019 ZACHARY MCKINNEY MD Ot Z01.81 8 ENCOUNTER FOR OTHER PREPROCEDURAL EXAMIN 02/08/2019 ZACHARY MCKINNEY MD Ot Z01.81 8 ENCOUNTER FOR OTHER PREPROCEDURAL EXAMIN 02/09/2019 ZACHARY MCKINNEY MD, Ot Z01.81 8 ENCOUNTER FOR OTHER PREPROCEDURAL EXAMIN 02/09/2019 ZACHARY MCKINNEY MD, Ot Z01.81 8 ENCOUNTER FOR OTHER PREPROCEDURAL EXAMIN 02/09/2019 ZACHARY MCKINNEY MD, Ot D12.8 BENIGN NEOPLASM OF RECTUM 02/09/2019 ZACHARY MCKINNEY MD, Ot F17.22 0 NICOTINE DEPENDENCE, CHEWING TOBACCO, UN 02/09/2019 ZACHARY MCKINNEY MD Ot I10 ESSENTIAL (PRIMARY) HYPERTENSION 02/09/2019 ZACHARY MCKINNEY MD Ot K21.0 GASTRO-ESOPHAGEAL REFLUX DISEASE WITH ES 02/09/2019 ZACHARY MCKINNEY MD, Ot K22.2 ESOPHAGEAL OBSTRUCTION 02/09/2019 ZACHARY MCKINNEY MD Ot K29.70 GASTRITIS, UNSPECIFIED, WITHOUT BLEEDING 02/09/2019 ZACHARY MCKINNEY MD Ot K44.9 DIAPHRAGMATIC HERNIA WITHOUT OBSTRUCTION 02/09/2019 ZACHARY MCKINNEY MD, Ot K57.30 DVRTCLOS OF LG INT W/O PERFORATION OR AB 02/09/2019 ZACHARY MCKINNEY MD, Ot K64.1 SECOND DEGREE HEMORRHOIDS 02/09/2019 ZACHARY MCKINNEY MD Ot Z12.11 ENCOUNTER FOR SCREENING FOR MALIGNANT NE 02/09/2019 ZACHARY MCKINNEY MD, Ot Z79.89 9 OTHER RESIDENTIAL (CURRENT) DRUG THERAPY 02/09/2019 ZACHARY MCKINNEY MD, Ot Z88.0 ALLERGY STATUS TO PENICILLIN 02/10/2019 ZACHARY MCKINNEY MD, Ot F17.22 0 NICOTINE DEPENDENCE, CHEWING TOBACCO, UN 02/10/2019 ZACHARY MCKINNEY MD Ot I10 ESSENTIAL (PRIMARY) HYPERTENSION 02/10/2019 ZACHARY MCKINNEY MD Ot K21.0 GASTRO-ESOPHAGEAL REFLUX DISEASE WITH ES 02/10/2019 ZACHARY MCKINNEY MD Ot K22.2 ESOPHAGEAL OBSTRUCTION 02/10/2019 ZACHARY MCKINNEY MD Ot K29.70 GASTRITIS, UNSPECIFIED, WITHOUT BLEEDING 02/10/2019 ZACHARY MCKINNEY MD Ot K44.9 DIAPHRAGMATIC HERNIA WITHOUT OBSTRUCTION 02/10/2019 ZACHARY MCKINNEY MD Ot K57.30 DVRTCLOS OF LG INT W/O PERFORATION OR AB 02/10/2019 ZACHARY MCKINNEY MD, Ot K62.1 RECTAL POLYP 02/10/2019 ZACHARY MCKINNEY MD, Ot K64.1 SECOND DEGREE HEMORRHOIDS 02/10/2019 ZACHARY MCKINNEY MD, Ot Z12.11 ENCOUNTER FOR SCREENING FOR MALIGNANT NE 02/10/2019 ZACHARY MCKINNEY MD, Ot Z79.89 9 OTHER BUSINESS SUPPORT ASSISTANT (CURRENT) DRUG THERAPY 02/10/2019 ZACHARY MCKINNEY MD, Ot Z88.0 ALLERGY STATUS TO PENICILLIN 02/11/2019 ZACHARY MCKINNEY MD Ot D12.8 BENIGN NEOPLASM OF RECTUM 02/11/2019 ZACHARY MCKINNEY MD, Ot F17.22 0 NICOTINE DEPENDENCE, CHEWING TOBACCO, UN 02/11/2019 ZACHARY MCKINNEY MD Ot I10 ESSENTIAL (PRIMARY) HYPERTENSION 02/11/2019 ZACHARY MCKINNEY MD, Ot K21.0 GASTRO-ESOPHAGEAL REFLUX DISEASE WITH ES 02/11/2019 ZACHARY MCKINNEY MD, Ot K22.2 ESOPHAGEAL OBSTRUCTION 02/11/2019 ZACHARY MCKINNEY MD, Ot K29.70 GASTRITIS, UNSPECIFIED, WITHOUT BLEEDING 02/11/2019 ZACHARY MCKINNEY MD, Ot K44.9 DIAPHRAGMATIC HERNIA WITHOUT OBSTRUCTION 02/11/2019 ZACHARY MCKINNEY MD, Ot K57.30 DVRTCLOS OF LG INT W/O PERFORATION OR AB 02/11/2019 ZACHARY MCKINNEY MD, Ot K64.1 SECOND DEGREE HEMORRHOIDS 02/11/2019 ZACHARY MCKINNEY MD Ot Z12.11 ENCOUNTER FOR SCREENING FOR MALIGNANT NE 02/11/2019 ZACHARY MCKINNEY MD Ot Z79.89 9 OTHER RESIDENTIAL (CURRENT) DRUG THERAPY 02/11/2019 HANK ORDOÑEZ ZACHARY Ot Z88.0 ALLERGY STATUS TO PENICILLIN 03/15/2019 KIMEMILI ALVARES E CAN STERILIZER Ot G47.10 HYPERSOMNIA, UNSPECIFIED 03/15/2019 KIMLILLY ALVARESINE E CAN STERILIZER Ot J30.9 ALLERGIC RHINITIS, UNSPECIFIED 03/15/2019 KIM, EMILI E CAN STERILIZER Ot R06.00 DYSPNEA, UNSPECIFIED 03/15/2019 KIM, EMILI E CAN STERILIZER Ot R06.89 OTHER ABNORMALITIES OF BREATHING 03/15/2019 KIMLILLY ALVARESINE E CAN STERILIZER Ot Z72.0 TOBACCO USE 03/15/2019 KIMLILLY ALVARESINE E CAN STERILIZER Ot G47.10 HYPERSOMNIA, UNSPECIFIED 03/15/2019 KIM, EMILI E CAN STERILIZER Ot J30.9 ALLERGIC RHINITIS, UNSPECIFIED 03/15/2019 KIM, EMILI E CAN STERILIZER Ot R06.00 DYSPNEA, UNSPECIFIED 03/15/2019 KIM, EMILI E CAN STERILIZER Ot R06.89 OTHER ABNORMALITIES OF BREATHING 03/15/2019 KIMEMILI ALVARES E CAN STERILIZER Ot Z72.0 TOBACCO USE 03/17/2019 LILLY ALVAREZINE E CAN STERILIZER Ot G47.10 HYPERSOMNIA, UNSPECIFIED 03/17/2019 KIM, EMILI E CAN STERILIZER Ot J30.9 ALLERGIC RHINITIS, UNSPECIFIED 03/17/2019 KIM, EMILI E CAN STERILIZER Ot R06.00 DYSPNEA, UNSPECIFIED 03/17/2019 KIM, EMILI E CAN STERILIZER Ot R06.89 OTHER ABNORMALITIES OF BREATHING 03/17/2019 KIMEMILI ALVARES CAN STERILIZER Ot Z72.0 TOBACCO USE 03/24/2019 EMILI ALVAREZ CAN STERILIZER Ot G47.10 HYPERSOMNIA, UNSPECIFIED 03/24/2019 KIM EMILI E CAN STERILIZER Ot J30.9 ALLERGIC RHINITIS, UNSPECIFIED 03/24/2019 KIM, EMILI E CAN STERILIZER Ot R06.00 DYSPNEA, UNSPECIFIED 03/24/2019 KIM, EMILI E CAN STERILIZER Ot R06.89 OTHER ABNORMALITIES OF BREATHING 03/24/2019 KIMLILYL ALVARESINE E CAN STERILIZER Ot Z72.0 TOBACCO USE 09/21/2019 SALVADOR JAVIER Ot E66.9 OBESITY, UNSPECIFIED 09/21/2019 SALVADOR JAVIER Ot G47.33 OBSTRUCTIVE SLEEP APNEA (ADULT) (PEDIATR 09/21/2019 SALVADOR JAVIER Ot I10 ESSENTIAL (PRIMARY) HYPERTENSION 09/21/2019 SALVADOR JAVIER Ot R06.02 SHORTNESS OF BREATH 09/21/2019 SALVADOR JAVIER Ot R07.89 OTHER CHEST PAIN 10/03/2019 VIRGINIA CORTES MD, Ot E66. 9 OBESITY, UNSPECIFIED 10/03/2019 VIRGINIA CORTES MD, Ot E78. 5 HYPERLIPIDEMIA, UNSPECIFIED 10/03/2019 VIRGINIA CORTES MD, Ot F17.220 NICOTINE DEPENDENCE, CHEWING TOBACCO, UN 10/03/2019 VIRGINIA CORTES MD, Ot G47. 10 HYPERSOMNIA, UNSPECIFIED 10/03/2019 VIRGINIA CORTES MD, Ot G47. 33 OBSTRUCTIVE SLEEP APNEA (ADULT) (PEDIATR 10/03/2019 VIRGINIA CORTES MD Ot I10 ESSENTIAL (PRIMARY) HYPERTENSION 10/03/2019 VIRGINIA CORTES MD, Ot I25. 10 ATHSCL HEART DISEASE OF [place] CORONARY 10/03/2019 VIRGINIA CORTES MD, Ot I65. 23 OCCLUSION AND STENOSIS OF BILATERAL [place] 10/03/2019 VIRGINIA CORTES MD, Ot Z79. 82 RESIDENTIAL (CURRENT) USE OF ASPIRIN 10/03/2019 VIRGINIA CORTES MD, Ot Z79.899 OTHER BUSINESS SUPPORT ASSISTANT (CURRENT) DRUG THERAPY 10/03/2019 VIRGINIA CORTES MD, Ot Z80. 9 FAMILY HISTORY OF MALIGNANT NEOPLASM, UN 10/03/2019 VIRGINIA CORTES MD, Ot Z82. 49 FAMILY HX OF ISCHEM HEART DIS AND OTH DI 10/03/2019 VIRGINIA CORTES MD, Ot Z88. 0 ALLERGY STATUS TO PENICILLIN Procedures There is no data. Results Test Result Range Complete blood count (CBC) with automate d white blood cell (WBC) differential - 12/26/18 18:16 Blood leukocytes automated count (number/volume) 8.5 10*3/uL 4.3-11.0 Blood erythrocytes automated count (number/volume) 4.55 10*6/uL 4.35-5.85 Venous blood hemoglobin measurement (mass/volume) 14.6 g/dL 13.3-17.7 Blood hematocrit (volume fraction) 42 % 40-54 Automated erythrocyte mean corpuscular volume 92 [ foz_us] 80-99 Automated erythrocyte mean corpuscular h emoglobin (mass per erythrocyte) 32 pg 25-34 Automated erythrocyte mean corpuscular h emoglobin concentration measurement (mass/volume) 35 g/dL 32-36 Automated erythrocyte distribution width ratio 12. 5 % 10.0- 14.5 Automated blood platelet count (count/volume) 247 10*3/uL 130-400 Automated blood platelet mean volume measurement 10.4 [foz_us] 7.4-10.4 Automated blood neutrophils/100 leukocytes 57 % 42-75 Automated blood lymphocytes/100 leukocytes 31 % 12-44 Blood monocytes/100 leukocytes 10 % 0-12 Automated blood eosinophils/100 leukocytes 2 % 0-10 Automated blood basophils/100 leukocytes 1 % 0-10 Blood neutrophils automated count (number/volume) 4.8 10*3 1.8-7.8 Blood lymphocytes automated count (number/volume) 2.6 10*3 1.0-4.0 Blood monocytes automated count (number/volume) 0. 8 10*3 0.0-1.0 Automated eosinophil count 0.2 10*3/uL 0 .0-0.3 Automated blood basophil count (count/volume) 0.1 10*3/uL 0.0-0.1 PT panel in platelet poor plasma by coag ulation assay - 12/26/18 18:16 Prothrombin time (PT) in platelet poor plasma by coagu lation assay 12.4 s 12.2-14.7 INR in platelet poor plasma or blood by coagulation as say 0.9 0.8-1.4 Activated partial thromboplastin time (a PTT) in platelet poor plasma bycoagulation assay - 12/26/18 18:16 Activated partial thromboplastin time (a PTT) in platelet poor plasma bycoagulation assay 26 s 24-35 Comprehensive metabolic panel - 12/26/18 18:16 Serum or plasma sodium measurement (moles/volume) 141 mmol/L 135-145 Serum or plasma potassium measurement (moles/volume) 3.7 mmol/L 3.6-5.0 Serum or plasma chloride measurement (moles/volume) 104 mmol/L 98-107 Carbon dioxide 25 mmol/L 21-32 Serum or plasma anion gap determination (moles/volume) 12 mmol/L 5-14 Serum or plasma urea nitrogen measurement (mass/volume ) 18 mg/dL 7-18 Serum or plasma creatinine measurement (mass/volume) 1.03 mg/dL 0.60-1.30 Serum or plasma urea nitrogen/creatinine mass ratio 17 NRG Serum or plasma creatinine measurement w ith calculation of estimated glomerular filtration rate > NRG Serum or plasma glucose measurement (mass/volume) 90 mg/dL 70-105 Serum or plasma calcium measurement (mass/volume) 9.8 mg/dL 8.5-10.1 Serum or plasma total bilirubin measurement (mass/volu me) 1.0 mg/dL 0.1-1.0 Serum or plasma alkaline phosphatase rere surement (enzymatic activity/volume) 76 U/L 40-136 Serum or plasma aspartate aminotransfera se measurement (enzymatic activity/volume) 17 U/L 5-34 Serum or plasma alanine aminotransferase measurement (enzymatic activity/volume) 19 U/L 0-55 Serum or plasma protein measurement (mass/volume) 7.2 g/dL 6.4-8.2 Serum or plasma albumin measurement (mass/volume) 4.6 g/dL 3.2-4.5 Magnesium - 12/26/18 18:16 Magnesium 2.5 mg/dL 1.8-2.4 Serum or plasma troponin i.cardiac measu rement (mass/volume) - 12/26/18 18:16 Serum or plasma troponin i.cardiac measurement (mass/v olume) < ng/mL <0.028 Myoglobin, serum - 12/26/18 18:16 Myoglobin, serum 23.8 ng/mL 10.0-92.0 Lipase - 12/26/18 18:16 Lipase 24 U/L 8-78 Serum or plasma lithium measurement (mol es/volume) - 12/26/18 18:16 BNP level 15.8 pg/mL <100.0 Serum or plasma troponin i.cardiac measu rement (mass/volume) - 12/26/18 20:40 Serum or plasma troponin i.cardiac measurement (mass/v olume) < ng/mL <0.028 Automated blood complete blood count (he mogram) panel - 09/14/19 07:04 Blood leukocytes automated count (number/volume) 6.1 10*3/uL 4.3-11.0 Blood erythrocytes automated count (number/volume) 4.62 10*6/uL 4.35-5.85 Venous blood hemoglobin measurement (mass/volume) 14.4 g/dL 13.3-17.7 Blood hematocrit (volume fraction) 42 % 40-54 Automated erythrocyte mean corpuscular volume 92 [ foz_us] 80-99 Automated erythrocyte mean corpuscular h emoglobin (mass per erythrocyte) 31 pg 25-34 Automated erythrocyte mean corpuscular h emoglobin concentration measurement (mass/volume) 34 g/dL 32-36 Automated erythrocyte distribution width ratio 12. 9 % 10.0- 14.5 Automated blood platelet count (count/volume) 210 10*3/uL 130-400 Automated blood platelet mean volume measurement 10.4 [foz_us] 7.4-10.4 Comprehensive metabolic panel - 09/14/19 07:04 Serum or plasma sodium measurement (moles/volume) 142 mmol/L 135-145 Serum or plasma potassium measurement (moles/volume) 3.9 mmol/L 3.6-5.0 Serum or plasma chloride measurement (moles/volume) 106 mmol/L 98-107 Carbon dioxide 25 mmol/L 21-32 Serum or plasma anion gap determination (moles/volume) 11 mmol/L 5-14 Serum or plasma urea nitrogen measurement (mass/volume ) 17 mg/dL 7-18 Serum or plasma creatinine measurement (mass/volume) 1.06 mg/dL 0.60-1.30 Serum or plasma urea nitrogen/creatinine mass ratio 16 NRG Serum or plasma creatinine measurement w ith calculation of estimated glomerular filtration rate > NRG Serum or plasma glucose measurement (mass/volume) 80 mg/dL 70-105 Serum or plasma calcium measurement (mass/volume) 9.5 mg/dL 8.5-10.1 Serum or plasma total bilirubin measurement (mass/volu me) 1.4 mg/dL 0.1-1.0 Serum or plasma alkaline phosphatase rere surement (enzymatic activity/volume) 69 U/L 40-136 Serum or plasma aspartate aminotransfera se measurement (enzymatic activity/volume) 17 U/L 5-34 Serum or plasma alanine aminotransferase measurement (enzymatic activity/volume) 18 U/L 0-55 Serum or plasma protein measurement (mass/volume) 6.8 g/dL 6.4-8.2 Serum or plasma albumin measurement (mass/volume) 4.4 g/dL 3.2-4.5 CALCIUM CORRECTED 9.2 mg/dL 8.5-10.1 Lipid 1996 panel - 09/14/19 07:04 Serum or plasma triglyceride measurement (mass/volume) 87 mg/dL <150 Serum or plasma cholesterol measurement (mass/volume) 228 mg/dL < 200 Serum or plasma cholesterol in HDL measurement (mass/v olume) 48 mg/dL 40-60 Cholesterol in LDL [mass/volume] in serum or plasma by direct assay 177 mg/dL 1-129 Serum or plasma cholesterol in VLDL measurement (mass/ volume) 17 mg/dL 5-40 PT panel in platelet poor plasma by coag ulation assay - 09/14/19 07:04 Prothrombin time (PT) in platelet poor plasma by coagu lation assay 12.9 s 12.2-14.7 INR in platelet poor plasma or blood by coagulation as say 0.9 0.8-1.4 Activated partial thromboplastin time (a PTT) in platelet poor plasma bycoagulation assay - 09/14/19 07:04 Activated partial thromboplastin time (a PTT) in platelet poor plasma bycoagulation assay 26 s 24-35 Methicillin resistant Staphylococcus aur eus (MRSA) screening culture - 09/14/19 07:04 Methicillin resistant Staphylococcus aureus (MRSA) scr eening culture NEG NRG Encounters ACCT No. Visit Date/Time Discharge Status Pt. Type Provider Facility Loc./Unit Complaint [id number] 04/11/2019 13:50:32 04/11/2019 23:59: 59 CLS Outpatient Lexie Eden [id number] 03/16/2019 10:38:26 03/16/2019 23:59: 59 CLS Outpatient Wilian Chen [id number] 01/27/2019 10:53:42 01/27/2019 23:59: 59 CLS Outpatient Lexie Eden [id number] 01/03/2019 14:38:25 01/03/2019 23:59: 59 CLS Outpatient Lexie Eden [id number] 12/20/2018 11:14:50 12/20/2018 23:59: 59 CLS Outpatient Elfego Norman [id number] 05/11/2017 11:43:58 05/11/2017 23:59: 59 CLS Outpatient StehekinRush [id number] 09/14/2019 06:37:00 11:05:00 DIS Outpatient VIRGINIA CORTES MD [facility] CATH CP,DYSPNEA,HTN [id number] 09/05/2019 08:51:00 23:59:59 CLS Outpatient KATH JAVIER [facility] CARD ANTERIOR CH EST WALL PAIN [id number] 03/11/2019 14:04:00 23:59:59 CLS Outpatient EMILI ALVAREZ APRN [facility] RT DYSPNEA [id number] 03/11/2019 14:04:00 15:45:00 DIS Outpatient EMILI ALVAREZ APRN [facility] SLEEP DYPSNEA, ALLERG IC RHINITIS, SLEEP DISORDER [id number] 02/09/2019 09:50:00 13:00:00 DIS Outpatient ZACHARY MCKINNEY MD [facility] ENDO SCREENING/DYSPHAGIA [id number] 02/08/2019 09:30:00 10:47:00 DIS Outpatient ZACHARY MCKINNEY MD [facility] PREOP COLONOSCOPY/EGD [id number] 01/18/2019 11:43:00 23:59:59 CLS Outpatient EMILI ALVAREZ APRN [facility] RAD DYSPNEA [id number] 12/29/2018 10:29:00 23:59:59 CLS Outpatient VIRGINIA CORTES MD [facility] CARD ANTERIOR CHEST WALL IVANA N [id number] 12/26/2018 18:07:00 21:45:00 DIS Emergency LETYT BOWERS MD [facility] ER CP
--- OUTSIDE RECORDS SUMMARY | 2019-10-09 18:53 | XMS REPORT ---
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 Operator Name Role Phone Crista Eden PCP Alicia Norman PreferredProvider Allergies and Adverse Reactions Name Reaction Notes PENICILLINS Plan of Treatment Planned Activity Comments Planned Date Planned Time Plan/Goal Epigastic Pain Appt for 02/01/19 @ 1045 in [place] Medications Active Name Start Date Estimated Completion Date SIG Co mments promethazine oral ketorolac 10 mg oral tablet Take one tab PO q6 hrs PRN for pain aspirin 81 mg oral tablet,delayed release (DR/EC) take 1 tablet (81 mg) by oral route once daily ibuprofen 200 mg oral tablet PRN meclizine 25 mg oral tablet 01/27/2019 06/26/2019 take 1 tablet (25 mg) by oral route 4 times per day for 30 days lisinopril-hydrochlorothiazide 10-12.5 mg oral tablet 02/10/2019 ... TAKE 1 TABLET BY MOUTH DAILY ... Name Start Date Expiration Date SIG Comments doxycycline hyclate 100 mg oral capsule 01/12/2019 9 take 1 capsule (100 mg) by oral route 2 times per day for 14 days doxycycline monohydrate 100 mg oral capsule 01/27/2019 02/10/2019 twice daily X14 Problem List Not available. Vital Signs Date Time BP-Sys(mm[Hg] BP-Denisse(mm[Hg]) HR(bpm) RR(rpm) Temp WT HT HC BMI BSA BMI Percentile O2 Sat(%) 04/11/2019 12:53:00 PM 122 mmHg 74 mmHg 93 bpm 18 rpm 98.6 F 241.312 lbs 72 in 32.7275 kg/m 2.3581 m 98 % 01/27/2019 10:03:00 AM 125 mmHg 82 mmHg 67 bpm 18 rpm 98.4 F 240 lbs 72 in 32.55 kg/m2 2.35 m2 98 % 01/03/2019 1:45:00 PM 130 mmHg 78 mmHg 67 bpm 18 rpm 97.7 F 238 lbs 72 in 32.2783 kg/m 2.3418 m 100 % 12/20/2018 11:21:00 AM 128 mmHg 88 mmHg 67 bpm 18 rpm 98.6 F 236 lbs 72 in 32.007 kg/m 2.33 m2 99 % Social History Name Description Comments Tobacco Current every day smoker 01/27/2019 - denies alcohol use Caffeine Current every day [...] Reviewed 12/20/2018 12:00 AM ASSAY TRIIODOTHYRONINE (T3) Reviewed 12/20/2018 12:00 AM CARDIOVASCULAR STRESS TEST Reviewed 12/20/2018 12:00 AM ELECTROCARDIOGRAM TRACING Reviewed 12/20/2018 12:00 AM CHEST X-RAY 2VW FRONTAL&LATL Reviewed 01/03/2019 12:00 AM Tick Panel Reviewed 01/03/2019 12:00 AM HETEROPHILE ANTIBODY SCREEN Reviewed 01/03/2019 12:00 AM COMPREHEN METABOLIC PANEL Reviewed 01/03/2019 12:00 AM COMPLETE CBC W/AUTO DIFF WBC Reviewed 01/03/2019 12:00 AM ECG MONIT/REPRT UP TO 48 HRS Reviewed 01/27/2019 12:00 AM Decadron 8mg Injection Reviewed 01/27/2019 12:00 AM Depo-Medrol 80mg Injection Reviewed 01/27/2019 12:00 AM THER/PROPH/DIAG INJ SC/IM Reviewed 04/11/2019 1:06 PM STREP A ASSAY W/OPTIC Reviewed 04/11/2019 12:00 AM HETEROPHILE ANTIBODY SCREEN Reviewed 04/11/2019 12:00 AM CULTURE SCREEN ONLY Reviewed 04/11/2019 12:00 AM ROUTINE VENIPUNCTURE Reviewed Results Summary Date and Description Results 12/20/2018 12:45 PM TSH 1.31 FREE T4 1.11 GLUCOS E 95 SODIUM 140 POTASSIUM 4.0 CHLORIDE 104 CO2 27 BUN 15 CREATININE 1.0 SGOT/AST 16 SGPT/ALT 20 ALK PHOS 83 TOTAL PROTEIN 7.5 ALBUMIN 4.7 TOTAL BILI 1.7 CALCIUM 10.1 AGE 58 GFR NonAA 77 GFR AA 93 eGFR 77 eGFR AA* >60 TRIGLYCERIDES 109 CHOLESTEROL 235 HDL 41 TOT CHOL/HDL 5.7 LDL (CALC) 172 WBC 9.8 RBC 4.90 HGB 15.3 HCT 46.7 MCV 95 MCH 31.2 MCHC 32.8 RDW SD 43 RDW CV 12.2 MPV 10.2 PLT 248 NRBC# 0.00 NRBC% 0.0 %NEUT 74.7 %LYMP 18.1 %MONO 5.5 %EOS 0.7 %BASO 0.7 #NEUT 7.35 #LYMP 1.78 #MONO 0.54 #EOS 0.07 #BASO 0.07 MANUAL DIFF NOT IND T3 TOTAL 0.97 12/20/2018 8:56 PM Falls in last 6 months? No U nsteady or worry about falling? No Fall Risk Assessment Not At Risk During the past month, have you been feeling depressed? No During the past month, have you lost interest in usual activity? No 01/03/2019 3:30 PM MONO TEST NEGATIVE WBC 9.6 R BC 4.63 HGB 14.5 HCT 42.8 MCV 92 MCH 31.3 MCHC 33.9 RDW SD 41 RDW CV 12.1 MPV 10.5 PLT 236 NRBC# 0.00 NRBC% 0.0 %NEUT 70.8 %LYMP 22.0 %MONO 5.7 %EOS 0.8 %BASO 0.5 #NEUT 6.76 #LYMP 2.10 #MONO 0.54 #EOS 0.08 #BASO 0.05 MANUAL DIFF NOT IND GLUCOSE 98 SODIUM 144 POTASSIUM 4.2 CHLORIDE 105 CO2 29 BUN 20 CREATININE 1.0 SGOT/AST 15 SGPT/ALT 17 ALK PHOS 76 TOTAL PROTEIN 7.2 ALBUMIN 4.5 TOTAL BILI 0.8 CALCIUM 9.8 AGE 58 GFR NonAA 77 GFR AA 93 eGFR 77 eGFR AA* >60 Lyme IgG/IgM Ab <0.91 Lyme Disease Ab, Quant,IgM <0.80 RMSF, IgG, EIA [facility] Spotted Fever,IgM 0.22 E. chaffeensis ([facility]) IgGTiter Negative E. chaffeensis ([facility]) IgMTiter Negative RMSF, IgG, IFA 1:64 04/11/2019 1:17 PM MONO TEST NEGATIVE History Of Immunizations Not available. History of Past Illness Name Date of Onset Comments arthritis Migraine Other fatigue Dec 20 2018 11:27AM Hypertension Dec 20 2018 11:27AM Shortness Of Breath Dec 20 2018 11:27AM Chest pain Dec 20 2018 11:27AM Acute non-recurrent pansinusitis Dec 20 2018 11:27AM Headache Dec 20 2018 11:27AM Fatigue Jan 03 2019 1:49PM Dyspnea Jan 03 2019 1:49PM Vertigo Jan 27 2019 10:06AM Hypertension Jan 27 2019 10:06AM GERD without esophagitis Jan 27 2019 10:06AM Sore throat Apr 11 2019 12:55PM Payers Insurance Name Company Name Plan Name Plan Number Policy Number Mikal cy Group Number Start Date BCBS [employer]bs [facility] [id number] N/ A BCBS [facility] [id number] N/ A History of Encounters Visit Date Visit Type Provider 04/11/2019 Office 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
--- OUTSIDE RECORDS SUMMARY | 2019-10-09 18:53 | XMS REPORT ---
Author Marinao Jerez Organization [facility] Address [address] [place], [place] [id number] Care Team Providers Care Composite Bond Technician Name Role Phone Crista Eden PCP Alicia Norman PreferredProvider Allergies and Adverse Reactions Name Reaction Notes PENICILLINS Plan of Treatment Planned Activity Comments Planned Date Planned Time Plan/Goal Epigastic Pain Appt for 02/01/19 @ 1045 in [place] Medications Active Name Start Date Estimated Completion [...] Ab, Quant,IgM <0.80 RMSF, IgG, EIA [facility] Spotted Fever,IgM 0.22 E. chaffeensis ([facility]) IgGTiter Negative E. chaffeensis ([facility]) IgMTiter Negative RMSF, IgG, IFA 1:64 04/11/2019 1:17 PM MONO TEST NEGATIVE 04/11/2019 1:26 PM STREPTOCOCCUS, GROUP A CULTU RE neg History Of Immunizations Not available. 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
== END 2019-09-14 11:05 | disposition home or self-care (01) ==
LOC: CATH 06:37 → SDC 08:46 → CATH 11:05
PROVIDERS: ATTEND Internal Medicine Cardiovascular Disease
DX: I25.10 Atherosclerotic heart disease of native coronary artery without angina pectoris (principal); E78.5 Hyperlipidemia, unspecified; I10 Essential (primary) hypertension; I65.23 Occlusion and stenosis of bilateral carotid arteries; E66.9 Obesity, unspecified; G47.33 Obstructive sleep apnea (adult) (pediatric); G47.10 Hypersomnia, unspecified; F17.220 Nicotine dependence, chewing tobacco, uncomplicated; Z88.0 Allergy status to penicillin; Z79.82 Long term (current) use of aspirin; Z79.899 Other long term (current) drug therapy; Z80.9 Family history of malignant neoplasm, unspecified; Z82.49 Family history of ischemic heart disease and other diseases of the circulatory system
CPT/HCPCS: 36415; 71045; 80053; 80061; 85027; 85610; 85730; 87081; 93458

== ENCOUNTER → 2022-02-24 | Outpatient (CLI) | payer BC ==
[~2022-02-24] VITALS: Ht 182 cm; Wt 127.0 kg
[~2022-02-24] MED LIST changes: +ASPI-1238 PO; +ATOR10TA PO; +CATHETER FLUSH 10 ML SYR IVP PRN; -DOXY100T19 PO; +DOXY100T31 PO; +IBUP-1780 PO; -LISI-556 PO; +LISI1TAB44 PO; -LISI1TAB6 PO; +LISI5TAB20 PO; +MTP25TSR PO; +NITR0.4T42 SL
[2022-02-24 09:58] VITALS: BP 118/68
--- NOTE | 2022-02-24 16:29 | Cardiology Stress Test Report ---
Stress Test Report Date of Procedure/Referring: Date of Procedure: February 24, 2022 PCP Virginia Cunningham MD Admitting Physician No,Local Physician Indications: HTN Baseline Heart Rate: 49 Baseline Blood Pressure: Blood Pressure Systolic: 118 Blood Pressure Diastolic: 68 Vital Signs Date Time Temp Pulse Resp B/P (MAP) Pulse Ox O2 Delivery O2 Flow Rate FiO2 02/24/22 09:58 49 118/68 (85) Baseline Vital Signs Vital Signs Date Time Temp Pulse Resp B/P (MAP) Pulse Ox O2 Delivery O2 Flow Rate FiO2 02/24/22 09:58 49 118/68 (85) Baseline EKG: Baseline EKG: NSR Summary: After explaining the procedure and details to the patient, he signed the consent and was brought to the stress nuclear laboratory. Patient exercised on standard Marvin protocol, EKG, heart rate and blood pressure were monitored continuously, resting and stress doses of radio tracer were injected, imaging was acquired and reviewed in the short axis, horizontal long axis and vertical long axis views Patient was able to exercise for a total of 7 minutes on Marvin protocol, METs 8.5 Maximum heart rate 146 Maximum blood pressure 177/64 Stress EKG, Minimal nondiagnostic changes Recovery EKG, Return to baseline TID: 0.94 SSS: 0 SDS: 0 EF: 62 Conclusion: 1. Fair exercise tolerance for a total of 7 minutes on standard Marvin protocol, 8.5 METS achieving 91% of maximal expected heart rate 2. Appropriate heart rate and blood pressure response to exercise return to baseline during recovery 3. Nondiagnostic EKG changes with exercise return to baseline during recovery 4. No ischemia or infarction on SPECT images 5. Normal left ventricular size, EF 62% VIRGINIA CUNNINGHAM MD February 24, 2022 16:29
== END ==
LOC: CARD 08:30
PROVIDERS: ATTEND Internal Medicine Cardiovascular Disease
DX: I10 Essential (primary) hypertension (principal)
CPT/HCPCS: 78452; 93017; A9502

== ENCOUNTER → 2023-02-24 | Outpatient (CLI) | payer BC ==
[~2023-02-24] MED LIST changes: -CATHETER FLUSH 10 ML SYR IVP PRN
--- NOTE | 2023-02-24 17:49 | Diagnostic Imaging Report ---
INDICATION: Bilateral knee pain AP, oblique, and lateral and sunrise views of both knees are obtained. No fracture or acute bony abnormality seen. Joint spaces appear unremarkable. IMPRESSION: Negative bilateral knees. Dictated by: Dictated on workstation # [id number]
== END ==
LOC: ORTHO 12:08
PROVIDERS: ATTEND Orthopaedic Surgery
DX: M25.561 Pain in right knee (principal); M25.562 Pain in left knee
CPT/HCPCS: 73564; G0463; 99203

== ENCOUNTER → 2023-03-16 | Outpatient (CLI) | payer BC ==
--- NOTE | 2023-03-16 17:05 | Diagnostic Imaging Report ---
CLINICAL INDICATION: Check for foreign body. EXAM: X-ray of the skull, AP and Wiley's view of the orbits. COMPARISON: None. FINDINGS AND IMPRESSION: Besides the dental hardware, there is no evidence of radiodense foreign object on this exam. There is no craniofacial bone abnormality. The visualized paranasal sinuses are grossly unremarkable. Dictated by: Dictated on workstation # [id number]
--- NOTE | 2023-03-16 18:34 | Diagnostic Imaging Report ---
MRI RT LOWER EXT JOINT W/O TECHNIQUE: Multiplanar, multisequence MR imaging of the right knee was performed without contrast. COMPARISON: 02/24/2023. INDICATION: Knee pain FINDINGS: MENISCI Medial meniscus: Normal. Lateral meniscus: Normal. LIGAMENTS ACL: Intact. PCL: Intact. MCL: Intact. LCL: The lateral collateral ligamentous complex is intact. EXTENSOR MECHANISM The extensor mechanism is intact. CARTILAGE Medial compartment: Medial compartment articular cartilage is well preserved without focal high-grade chondromalacia. Lateral compartment: The lateral compartment articular cartilage is preserved without high-grade chondromalacia. Patellofemoral compartment: Full-thickness chondral fissuring in the lateral patellar facet with underlying subchondral bone marrow edema. The surrounding articular cartilage in the medial and lateral aspects of the patellar facet have partial-thickness chondromalacia. BONE No fracture, stress fracture or osteonecrosis. SOFT TISSUE A 2.0 x 2.0 x 1.0 cm ganglion cyst is present at the posterior aspect of the knee, likely arising from a defect in the capsule near the PCL insertion on the tibia. IMPRESSION: 1. No meniscal tear. 2. 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 Remainder of the articular cartilage throughout the knee is well preserved. 3. Ganglion cyst in the posterior aspect of the knee arises from the joint capsule near the PCL insertion. Dictated by: Dictated on workstation # [id number]
== END ==
LOC: RAD 14:07
PROVIDERS: ATTEND Orthopaedic Surgery
DX: M22.41 Chondromalacia patellae, right knee (principal); M25.861 Other specified joint disorders, right knee; S83.241A Other tear of medial meniscus, current injury, right knee, initial encounter; X58.XXXA Exposure to other specified factors, initial encounter
CPT/HCPCS: 73721

== ENCOUNTER 2023-04-01 14:19 | Outpatient (CLI) | payer BC | END 2023-04-01 14:45 | LOC: SLEEP 14:19 | PROVIDERS: ATTEND Internal Medicine Cardiovascular Disease | DX: G47.33 Obstructive sleep apnea (adult) (pediatric) (principal); I10 Essential (primary) hypertension; R06.83 Snoring | CPT/HCPCS: G0399 ==